=== PATIENT | male | born 1950 | race Caucasian/White ===

== ENCOUNTER → 2017-01-21 | Outpatient (CLI) | payer OTHER | LOC: CIMAGING 10:58 | PROVIDERS: ATTEND Chiropractor Sports Physician | DX: M54.5 Low back pain (principal); M16.0 Bilateral primary osteoarthritis of hip; M51.36 Other intervertebral disc degeneration, lumbar region; M41.9 Scoliosis, unspecified; M25.511 Pain in right shoulder; M50.322 Other cervical disc degeneration at C5-C6 level | CPT/HCPCS: 72040-PO; 72100-PO; 72170-PO ==